=== PATIENT | female | born 1990 | race Two or more races ===

== ENCOUNTER → 2017-07-17 | Outpatient (REF) | payer OTHER | LOC: M SFHCPLAZ 12:20 | PROVIDERS: ATTEND Family Medicine | DX: R82.90 Unspecified abnormal findings in urine (principal) ==

== ENCOUNTER 2017-08-10 13:52 | Emergency (ER) | payer OTHER ==
[~2017-08-10] VITALS: Ht 170.2 cm; Wt 70.9 kg
[2017-08-10] MEDS ORDERED: GABA-282 (14:03)
[2017-08-10] MEDS ORDERED: EXCETAB81 PO (14:03)
[2017-08-10] MEDS ORDERED: IBUP-1022 PO (14:03)
[2017-08-10] MEDS ORDERED: LIDOCAINE 2% MDV 20 ML VIAL SC ONE (14:45)
[2017-08-10] MEDS ORDERED: [UNRECOGNIZED DRUG - CODE] PO (15:10)
[2017-08-10] MEDS ORDERED: PERC5TAB12 PO (15:11)
[2017-08-10] MEDS ORDERED: AUGM875T28 PO (15:13)
[2017-08-10 15:26] VITALS: BP 106/69
== END 2017-08-10 15:31 | disposition home or self-care (01) ==
LOC: M ED 13:52
DX: K08.89 Other specified disorders of teeth and supporting structures (principal); Z72.0 Tobacco use

== ENCOUNTER → 2017-10-08 | Outpatient (REF) | payer OTHER ==
[2017-10-09 14:14] LABS: AMPHETAMINE SCREEN, URINE Negative ng/mL (Cutoff=1000); BARBITURATES SCREEN, URINE Negative ng/mL (Cutoff=200); BENZODIAZEPINES, URINE SCREEN Negative ng/mL (Cutoff=200); CANNABINOID SCREEN, URINE Negative ng/mL (Cutoff=20); COCAINE SCREEN, URINE Negative ng/mL (Cutoff=300); CREATININE, URINE 191.8 mg/dL (20.0-300.0); FENTANYL URINE SCREEN Negative pg/mL (Cutoff=2000); METHADONE, URINE SCREEN Negative ng/mL (Cutoff=300); OPIATE SCREEN, URINE Negative ng/mL (Cutoff=300); OXYCODONE, SCREEN, URINE Negative ng/mL (Cutoff=100); PCP SCREEN, URINE Negative ng/mL (Cutoff=25); SPECIFIC GRAVITY, URINE 1.021 (.); pH, URINE 6.4 (4.5-8.9)
== END ==
LOC: M SFHCPLAZ 12:57
DX: Z51.81 Encounter for therapeutic drug level monitoring (principal)

== ENCOUNTER 2017-11-25 18:36 | Inpatient (IN) | payer OTHER ==
[2017-11-25] MEDS: ONDANSETRON 4MG/2ML VIAL (J2405) IV (21:00)
[2017-11-25] MEDS: KETOROLAC 30 MG/ML VIAL (J1885) IV (21:00)
[2017-11-25 21:06] LABS: BASO # 0.1 10^3/uL (0.0-0.2); BASO % 0.4 % (0.0-1.0); EOS # 1.3 10^3/uL (0.0-0.50); EOS % 6.1 % (0.0-3.0); HEMATOCRIT 47.3 % (36.0-47.0); IMMATURE GRANULOCYTE % 0.4 % (0-3.0); LYMPH # 3.4 10^3/uL (1.5-6.5); LYMPH % 16.1 % (24.0-44.0); MEAN CORPUSCULAR HEMOGLOBIN 29.2 pg (27.0-33.0); MEAN CORPUSCULAR HGB CONC 33.8 g/dl (32.0-36.5); MEAN CORPUSCULAR VOLUME 86.3 fl (80.0-96.0); MONO # 1.6 10^3/uL (0.0-0.8); MONO % 7.7 % (0.0-5.0); NEUTROPHILS # 14.6 10^3/uL (1.8-7.7); NEUTROPHILS % 69.3 % (36.0-66.0); PLATELET COUNT, AUTOMATED 337 10^3/uL (150-450); RED BLOOD COUNT 5.48 10^6/uL (4.00-5.40); RED CELL DISTRIBUTION WIDTH 11.9 % (11.5-14.5)
[2017-11-25] MEDS ORDERED: GASTROGRAFIN SOLUTION 30ML (Q9963) PO (21:15)
[2017-11-25 21:16] LABS: KETONE, URINE AUTO RFX NEGATIVE (NEGATIVE); MUCUS, URINE RFX SMALL (NEGATIVE); NITRITE, URINE AUTO RFX NEGATIVE (NEGATIVE); RBC, URINE AUTO RFX 3 /HPF (0-3); SPECIFIC GRAVITY UR AUTO RFX 1.014 (1.002-1.035); SQUAM EPITHELIAL CELL UR AURFX 2 /HPF (0-6); WBC, URINE AUTO RFX 3 /HPF (0-3)
[2017-11-25 21:18] LABS: LEUKOCYTE ESTERASE UR AUTO RFX TRACE (NEGATIVE)
[2017-11-25 21:29] LABS: ALT/SGPT 72 U/L (12-78); AST/SGOT 100 U/L (7-37); C REACTIVE PROTEIN QUANTITATIV < 0.30 MG/DL (0.00-0.30); CHLORIDE LEVEL 108 MEQ/L (98-107); CREATININE FOR GFR 0.72 MG/DL (0.55-1.30); GAMMA GLUTAMYLTRANSPEPTIDASE 233 U/L (5-55); LIPASE 6929 U/L (73-393); POTASSIUM SERUM 4.1 MEQ/L (3.5-5.1); SODIUM LEVEL 140 MEQ/L (136-145); TOTAL PROTEIN 7.8 GM/DL (6.4-8.2)
[2017-11-25 21:42] LABS: ALBUMIN 4.1 GM/DL (3.2-5.2); ALBUMIN/GLOBULIN RATIO 1.11 (1.00-1.93); ALKALINE PHOSPHATASE 115 U/L (45-117); AMYLASE 319 U/L (25-115); BILIRUBIN,DIRECT 0.2 MG/DL (0.0-0.2); BILIRUBIN,TOTAL 0.3 MG/DL (0.2-1.0); BLOOD UREA NITROGEN 10 MG/DL (7-18); CALCIUM LEVEL 9.2 MG/DL (8.5-10.1); GLUCOSE, FASTING 85 MG/DL (70-100)
[2017-11-25] MEDS: MORPHINE 2 MG/ML 1ML SYRINGE (J2270) IV (21:44)
[2017-11-25] MEDS: METOCLOPRAMIDE INJ 10MG/2ML VIAL (J2765) IV (21:45)
[2017-11-25] MEDS: GASTROGRAFIN SOLUTION 30ML (Q9963) PO ×2 (22:00→22:30)
[2017-11-25] MEDS ORDERED: ISOVUE-370 76% 100ML VIAL (Q9967) As Ordered (22:36)
[2017-11-25 23:00] LABS: ANION GAP 7 MEQ/L (8-16); CARBON DIOXIDE LEVEL 25 MEQ/L (21-32)
[2017-11-26 00:37] LABS: CHOLESTEROL LEVEL 191 MG/DL (<200); CHOLESTEROL RISK RATIO 2.448 (<5); HDL CHOLESTEROL 78 MG/DL (>40); LDL CHOLESTEROL 102.8 MG/DL (<100); NON-HDL-C 113 MG/DL; TRIGLYCERIDES LEVEL 51 MG/DL (<150)
[2017-11-26] MEDS ORDERED: clonazePAM 0.5 MG TAB PO (00:45)
[2017-11-26] MEDS ORDERED: IBUPROFEN 600 MG TAB PO (00:45)
[2017-11-26] MEDS: NS 1,000 ML IV ×2 (01:41→06:23)
[2017-11-26] MEDS: LORazepam 2 MG/ML VIAL (J2060) IV ×3 (02:34→23:20)
[2017-11-26] MEDS: MORPHINE 4 MG/ML 1ML VIAL (J2270) IV ×5 (02:34→23:22)
[2017-11-26] MEDS: ONDANSETRON 4MG/2ML VIAL (J2405) IV ×3 (02:34→20:19)
[2017-11-26 07:17] LABS: BASO # 0.1 10^3/uL (0.0-0.2); BASO % 0.7 % (0.0-1.0); EOS # 1.6 10^3/uL (0.0-0.50); HEMATOCRIT 40.1 % (36.0-47.0); IMMATURE GRANULOCYTE % 0.3 % (0-3.0); LYMPH # 2.5 10^3/uL (1.5-6.5); LYMPH % 23.3 % (24.0-44.0); MEAN CORPUSCULAR HEMOGLOBIN 29.3 pg (27.0-33.0); MEAN CORPUSCULAR HGB CONC 34.2 g/dl (32.0-36.5); MEAN CORPUSCULAR VOLUME 85.7 fl (80.0-96.0); MONO # 0.8 10^3/uL (0.0-0.8); MONO % 7.8 % (0.0-5.0); NEUTROPHILS # 5.6 10^3/uL (1.8-7.7); NEUTROPHILS % 52.9 % (36.0-66.0); PLATELET COUNT, AUTOMATED 294 10^3/uL (150-450); RED BLOOD COUNT 4.68 10^6/uL (4.00-5.40); RED CELL DISTRIBUTION WIDTH 12.1 % (11.5-14.5); WHITE BLOOD COUNT 10.6 10^3/uL (4.0-10.0)
[2017-11-26 07:22] LABS: HEMOGLOBIN 13.7 g/dl (12.0-16.0)
[2017-11-26 07:33] LABS: LIPASE 897 U/L (73-393)
[2017-11-26 07:35] LABS: ALBUMIN 3.1 GM/DL (3.2-5.2); ALKALINE PHOSPHATASE 110 U/L (45-117); ALT/SGPT 265 U/L (12-78); ANION GAP 5 MEQ/L (8-16); AST/SGOT 355 U/L (7-37); BILIRUBIN,TOTAL 0.5 MG/DL (0.2-1.0); BLOOD UREA NITROGEN 9 MG/DL (7-18); CALCIUM LEVEL 7.9 MG/DL (8.5-10.1); CARBON DIOXIDE LEVEL 27 MEQ/L (21-32); CHLORIDE LEVEL 110 MEQ/L (98-107); CREATININE FOR GFR 0.67 MG/DL (0.55-1.30); GLOMERULAR FILTRATION RATE > 60.0 (>60); GLUCOSE, FASTING 82 MG/DL (70-100); POTASSIUM SERUM 3.9 MEQ/L (3.5-5.1); SODIUM LEVEL 142 MEQ/L (136-145); TOTAL PROTEIN 6.2 GM/DL (6.4-8.2)
[2017-11-26] MEDS: ENOXAPARIN 40 MG/0.4 ML SYRINGE (J1650) SC (08:33)
[2017-11-26] MEDS: PANTOPRAZOLE 40MG INJ (PROTONIX) (C9113) IV (08:33)
[2017-11-26] MEDS: GABAPENTIN 300 MG CAP PO (08:33)
[2017-11-26] MEDS: D5W/0.9% SODIUM CHLORIDE 1,000 ML IV ×3 (12:41→23:04)
[2017-11-26 13:10] LABS: HEPATITIS B SURFACE ANTIGEN NEGATIVE (NEGATIVE)
[2017-11-26 13:38] LABS: HEPATITIS C VIRUS ABY INDEX 0.1 INDEX (<0.8)
[2017-11-26 13:39] LABS: HEPATITIS B CORE ANTIBODY IGM NEGATIVE (NEGATIVE)
[2017-11-26 13:40] LABS: HEPATITIS A ANTIBODY IGM NEGATIVE (NEGATIVE)
[2017-11-27] MEDS: D5W/0.9% SODIUM CHLORIDE 1,000 ML IV ×3 (03:33→17:59)
[2017-11-27 07:13] LABS: HEMATOCRIT 38.3 % (36.0-47.0); HEMOGLOBIN 12.8 g/dl (12.0-16.0); MEAN CORPUSCULAR HEMOGLOBIN 29.3 pg (27.0-33.0); MEAN CORPUSCULAR HGB CONC 33.4 g/dl (32.0-36.5); MEAN CORPUSCULAR VOLUME 87.6 fl (80.0-96.0); PLATELET COUNT, AUTOMATED 258 10^3/uL (150-450); RED BLOOD COUNT 4.37 10^6/uL (4.00-5.40)
[2017-11-27 07:45] LABS: ALBUMIN 2.8 GM/DL (3.2-5.2); ALKALINE PHOSPHATASE 105 U/L (45-117); ALT/SGPT 172 U/L (12-78); ANION GAP 5 MEQ/L (8-16); AST/SGOT 88 U/L (7-37); BILIRUBIN,TOTAL 0.3 MG/DL (0.2-1.0); BLOOD UREA NITROGEN 6 MG/DL (7-18); CALCIUM LEVEL 7.4 MG/DL (8.5-10.1); CARBON DIOXIDE LEVEL 27 MEQ/L (21-32); CHLORIDE LEVEL 113 MEQ/L (98-107); GLOMERULAR FILTRATION RATE > 60.0 (>60); GLUCOSE, FASTING 103 MG/DL (70-100); LIPASE 163 U/L (73-393); POTASSIUM SERUM 3.9 MEQ/L (3.5-5.1); SODIUM LEVEL 145 MEQ/L (136-145); TOTAL PROTEIN 5.6 GM/DL (6.4-8.2)
[2017-11-27] MEDS: PANTOPRAZOLE 40MG INJ (PROTONIX) (C9113) IV (08:12)
[2017-11-27] MEDS: ENOXAPARIN 40 MG/0.4 ML SYRINGE (J1650) SC (08:13)
[2017-11-27] MEDS: LORazepam 2 MG/ML VIAL (J2060) IV (14:13)
[2017-11-27] MEDS: SUCRALFATE SUSP 1GM/10ML UD PO ×2 (17:59→23:21)
[2017-11-27] MEDS: MORPHINE 4 MG/ML 1ML VIAL (J2270) IV ×2 (20:43→23:21)
[2017-11-27] MEDS ORDERED: ACETAMINOPHEN TAB 650MG DOSE (2X325MG) PO (22:00)
[2017-11-27] MEDS: NORCO, ANEXSIA 5/325MG TABLET (HYDROcodone/ACETAMINOPHEN) PO (22:04)
[2017-11-27] MEDS: VANCOMYCIN ORAL SOL 250MG/5ML ORAL SYRINGE PO (23:22)
[2017-11-27] MEDS: clonazePAM 0.5 MG TAB PO (23:25)
[2017-11-28] MEDS: ONDANSETRON 4MG/2ML VIAL (J2405) IV
[2017-11-28] MEDS: MORPHINE 4 MG/ML 1ML VIAL (J2270) IV ×2 (01:47→04:43)
[2017-11-28] MEDS: D5W/0.9% SODIUM CHLORIDE 1,000 ML IV (06:02)
[2017-11-28] MEDS: SUCRALFATE SUSP 1GM/10ML UD PO (06:02)
[2017-11-28] MEDS: VANCOMYCIN ORAL SOL 250MG/5ML ORAL SYRINGE PO (06:03)
[2017-11-28 07:34] LABS: HEMATOCRIT 39.7 % (36.0-47.0); HEMOGLOBIN 13.1 g/dl (12.0-16.0); MEAN CORPUSCULAR HEMOGLOBIN 28.6 pg (27.0-33.0); MEAN CORPUSCULAR VOLUME 86.7 fl (80.0-96.0); PLATELET COUNT, AUTOMATED 285 10^3/uL (150-450); RED BLOOD COUNT 4.58 10^6/uL (4.00-5.40); RED CELL DISTRIBUTION WIDTH 11.9 % (11.5-14.5)
[2017-11-28 07:57] LABS: ALBUMIN 3.1 GM/DL (3.2-5.2); ALBUMIN/GLOBULIN RATIO 1.11 (1.00-1.93); ALKALINE PHOSPHATASE 106 U/L (45-117); ALT/SGPT 133 U/L (12-78); ANION GAP 7 MEQ/L (8-16); AST/SGOT 37 U/L (7-37); BILIRUBIN,TOTAL 0.2 MG/DL (0.2-1.0); BLOOD UREA NITROGEN 7 MG/DL (7-18); CALCIUM LEVEL 8.3 MG/DL (8.5-10.1); CARBON DIOXIDE LEVEL 28 MEQ/L (21-32); CHLORIDE LEVEL 109 MEQ/L (98-107); CREATININE FOR GFR 0.59 MG/DL (0.55-1.30); GLOMERULAR FILTRATION RATE > 60.0 (>60); GLUCOSE, FASTING 96 MG/DL (70-100); LIPASE 177 U/L (73-393); POTASSIUM SERUM 3.9 MEQ/L (3.5-5.1); SODIUM LEVEL 144 MEQ/L (136-145); TOTAL PROTEIN 5.9 GM/DL (6.4-8.2)
[2017-11-28] MEDS: ENOXAPARIN 40 MG/0.4 ML SYRINGE (J1650) SC (08:45)
[2017-11-28] MEDS: PANTOPRAZOLE 40MG INJ (PROTONIX) (C9113) IV (08:45)
[2017-11-28] MEDS: clonazePAM 0.5 MG TAB PO (09:48)
[2017-11-28 10:04] LABS: CONTROL LINE HPYORI INT CTR LINE PRESENT; H PYLORI QUALITATIVE IgG NEGATIVE (NEGATIVE)
[2017-11-28 10:46] LABS: HIV 1&2 SCREEN CENTAUR NEGATIVE (NEGATIVE)
[2017-11-29 14:10] LABS: TISSUE TRANSGLUTAMINASE IgG <2 U/mL (0-5)
[2017-12-01 14:11] LABS: IgG SERUM (part of Subclasses) 505 mg/dL (700-1600); IgG Subclass 1 275 mg/dL (248-810); IgG Subclass 2 226 mg/dL (130-555); IgG Subclass 3 46 mg/dL (15-102); IgG Subclass 4 17 mg/dL (2-96)
== END 2017-11-28 10:55 | disposition home or self-care (01) | DRG 282 ==
LOC: M ED INP 11-26 01:00 → M ED 18:36 → M PED 11-26 01:45
DX: K85.90 Acute pancreatitis without necrosis or infection, unspecified (principal); A04.71 Enterocolitis due to Clostridium difficile, recurrent; B17.9 Acute viral hepatitis, unspecified; E78.5 Hyperlipidemia, unspecified; F41.9 Anxiety disorder, unspecified; F17.210 Nicotine dependence, cigarettes, uncomplicated; Z79.899 Other long term (current) drug therapy; Z90.49 Acquired absence of other specified parts of digestive tract; K29.80 Duodenitis without bleeding

== ENCOUNTER → 2017-12-19 | Outpatient (REF) | payer OTHER | LOC: M SFHCPLAZ 15:20 | DX: R82.90 Unspecified abnormal findings in urine (principal) ==

== ENCOUNTER → 2017-12-29 | Outpatient (CLI) | payer OTHER | LOC: M OUTALCOH 07:43 | DX: Z13.9 Encounter for screening, unspecified (principal); F14.10 Cocaine abuse, uncomplicated ==

== ENCOUNTER 2018-01-07 15:53 | Outpatient (RCR) | payer OTHER | END 2018-02-05 | LOC: M OUTALCOH 01-13 14:00 | DX: F14.10 Cocaine abuse, uncomplicated (principal); Z72.0 Tobacco use ==

== ENCOUNTER 2018-02-11 16:00 | Outpatient (RCR) | payer OTHER | END 2018-03-07 | LOC: M OUTALCOH 02-18 14:00 | DX: F14.10 Cocaine abuse, uncomplicated (principal); Z72.0 Tobacco use ==

== ENCOUNTER 2018-03-18 11:39 | Outpatient (RCR) | payer OTHER | END 2018-04-07 | LOC: M OUTALCOH 11:39 | DX: F14.10 Cocaine abuse, uncomplicated (principal); Z72.0 Tobacco use ==

== ENCOUNTER → 2018-03-18 | Outpatient (CLI) | payer OTHER | LOC: M LAB 15:24 | DX: F14.10 Cocaine abuse, uncomplicated (principal) | CPT/HCPCS: 36415 ==

== ENCOUNTER 2018-05-22 10:41 | Outpatient (RCR) | payer OTHER | END 2018-06-07 | LOC: M OUTALCOH 10:41 | DX: F14.10 Cocaine abuse, uncomplicated (principal); Z72.0 Tobacco use ==